=== PATIENT | male | born 1940 | race Caucasian/White ===

== ENCOUNTER 2021-10-28 12:48 | Outpatient (CLI) | payer MEDICARE | END 2021-10-28 12:49 | disposition home or self-care (01) | LOC: CSHCT 12:48 | PROVIDERS: ATTEND Internal Medicine Cardiovascular Disease | DX: Z01.810 Encounter for preprocedural cardiovascular examination (principal); I48.0 Paroxysmal atrial fibrillation; R29.6 Repeated falls | CPT/HCPCS: 71275 ==

== ENCOUNTER 2021-12-19 09:38 | Outpatient (CLI) | payer MEDICARE | END 2021-12-19 09:39 | disposition home or self-care (01) | LOC: CSHCT 09:38 | PROVIDERS: ATTEND Internal Medicine Cardiovascular Disease | DX: I48.0 Paroxysmal atrial fibrillation (principal); Z95.818 Presence of other cardiac implants and grafts | CPT/HCPCS: 71275; 82565 ==